=== PATIENT | female | born 1980 | race Caucasian/White ===

== ENCOUNTER 2018-03-29 23:06 | Emergency (ER) | payer MEDICAID, SELFPAY ==
[~2018-03-29 23:06] MED LIST: Iopamidol 370 76% 125 ML VIAL FS ONE; Sodium Chloride 0.9% 1,000 ML BAG ONE
[2018-03-29] MEDS ORDERED: Fentanyl 100 MCG/2 ML VIAL ONE (23:58)
[2018-03-29] MEDS ORDERED: Ondansetron PF 4 MG/2 ML Vial ONE (23:58)
[2018-03-30 00:12] LABS: Eosinophils 1 % (0-10); Hemoglobin 9.5 g/dL (12.0-16.0); Lymphocytes 60 % (21-51); MDiff Complete? YES; Macrocytosis SLIGHT = 6-15 cells (100X) (0-5/hpf); Mean Corpuscular HGB CONC 34.3 g/dL (32.0-36.0); Mean Corpuscular Hemoglobin 32.9 pg (27.0-31.0); Mean Corpuscular Volume 95.9 fL (78.0-98.0); Mean Platelet Volume 6.2 fL (7.4-10.4); Microcytosis SLIGHT = 6-15 cells (100X) (0-5/hpf); Monocytes 6 % (0-10); Neutrophil 33 % (42-75); PLT Morphology Comment Appears Adequate; Platelet Count 239 thou/uL (130-400); RBC Distribution Width 15.1 % (11.5-14.5); RBC Morphology Abnormal; Red Blood Cell (RBC) Count 2.89 mill/uL (4.20-5.40); Stomatocytes SLIGHT = 2-5 cells (100X) (0-1/hpf)
[2018-03-30 00:14] LABS: ALT (SGPT) 29 U/L (8-55); AST (SGOT) 28 U/L (5-34); Albumin 4.4 g/dL (3.5-5.0); Alkaline Phosphatase 84 U/L (40-150); Anion Gap 15 mmol/L (10-20); BUN (Urea Nitrogen) 12 mg/dL (7.0-18.7); Bilirubin, Total 0.2 mg/dL (0.2-1.2); Calc. Creatinine Clearance 0 mL/min (70-130); Calcium 8.7 mg/dL (7.8-10.44); Carbon Dioxide 24 mmol/L (22-29); Chloride 102 mmol/L (98-107); Estimated GFR-MDRD 77; Globulin 2.8 g/dL (2.4-3.5); Glucose 83 mg/dL (70-105); Potassium 3.7 mmol/L (3.5-5.1); Protein, Total 7.2 g/dL (6.0-8.3); Sodium 137 mmol/L (136-145)
[2018-03-30 00:15] LABS: CKMB 0.7 ng/mL (0-6.6); Troponin I Less than 0.010 ng/mL (< 0.028)
[2018-03-30] MEDS ORDERED: Ondansetron PF 4 MG/2 ML Vial ONE (01:34)
[2018-03-30] MEDS ORDERED: Fentanyl 100 MCG/2 ML VIAL ONE (01:34)
--- NOTE | 2018-03-30 09:21 | CT ---
PRELIMINARY REPORT/[facility]/EMERGENTY AFTER-HOURS PROCEDURE CT Angiography Chest With Intravenous Contrast EXAM DATE/TIME: 03/30/2018 12:43 AM CLINICAL HISTORY: 38 years old, female; Pain; Chest pain; Type not specified; Additional info: Chest pain, 2 types of l mackenzie CA TECHNIQUE: Axial computed tomographic angiography images of the chest with intravenous contrast using CT angiogr aphy protocol. All CT scans at this facility use at least one of these dose optimization techniques: automated expos ure control; mA and/or kV adjustment per patient size (includes targeted exams where dose is matched to clinical indication); or iterative reconstruction. MIP reconstructed images were created and reviewed. CONTRAST: 100 ml of ISOVUE administered intravenously. COMPARISON: No relevant prior studies available. FINDINGS: Pulmonary arteries: There is no evidence of peripheral filling defects within the pulmonary arterial circulation to suggest pulmonary embolism. Aorta: The aorta is normal. There is no evidence of aortic dissection, leak, rupture, or other compli cations. Lungs: There are RIGHT upper lobe lung nodules measuring 13 x 10 mm posteriorly adjacent to the pleur a and 6 x 13 mm laterally more irregular in morphology (series 2, images 43 and 54). Pleural space: Normal. No pneumothorax. No pleural effusion. Heart: Normal. No cardiomegaly. No pericardial effusion. Bones/joints: Unremarkable. No acute fracture. Soft tissues: Unremarkable. Lymph nodes: There is a 2.3 cm pathologically enlarged RIGHT hilar lymph node. IMPRESSION: 1. There is no CT evidence of acute pulmonary embolism. 2. RIGHT lung nodules suspicious for neoplasm. 3. There is a 2.3 cm pathologically enlarged RIGHT hilar lymph node. Thank you for allowing us to participate in the care of your patient. Dictated and Authenticated by: Abdoul Yen MD 03/30/2018 1:50 AM Central Time ([place] & [place]) FINAL REPORT EMERGENCY AFTER HOURS CT ANGIOGRAM CHEST WITH 3D RENDERING: Date: 03/29/18 Time: 0040 hours FINDINGS: No convincing CT evidence for acute pulmonary embolism. 2.3 cm diameter abnormally enlarged right hil ar lymph node/mass with some upper lobe pulmonary artery encasement. Multiple right lung nodules up t o 1.0 x 1.3 cm and 0.6 x 1.3 cm. No evidence for aortic aneurysm or dissection. Report in agreement with preliminary report given on-call by Davy. POS: [facility]
== END 2018-03-30 02:55 | disposition home or self-care (01) ==
LOC: MADERS 23:06
DX: D49.1 Neoplasm of unspecified behavior of respiratory system (principal); C34.91 Malignant neoplasm of unspecified part of right bronchus or lung; F41.9 Anxiety disorder, unspecified; J44.9 Chronic obstructive pulmonary disease, unspecified; D64.9 Anemia, unspecified; F17.210 Nicotine dependence, cigarettes, uncomplicated
CPT/HCPCS: 71275; 80053; 82553; 83880; 84484; 85025; 93005; 94760; 96361; 96374; 96375; 96376; J2405; J3010; J7050

== ENCOUNTER 2018-08-31 22:19 | Emergency (ER) | payer OTHER, SELFPAY | END 2018-08-31 23:20 | disposition left against medical advice (07) | LOC: MADERS 22:19 | DX: H92.09 Otalgia, unspecified ear (principal); Z79.899 Other long term (current) drug therapy; Z79.891 Long term (current) use of opiate analgesic | CPT/HCPCS: 99282 ==